=== PATIENT | female | born 1995 | race Caucasian/White ===

== ENCOUNTER 2022-04-17 18:41 | Emergency (ER) | payer MEDICAID, SELFPAY ==
[2022-04-17 18:44] VITALS: BP 163/102; PULSE 86; RESP 17; TEMP 37; O2SAT 99; BMI 24.7
--- NOTE | 2022-04-17 19:02 | HMH.EDGENADL ---
Discharge Plan Disposition Patient Disposition: Home, Self-Care Prescriptions Prescriptions: No Action No Known Home Medications Activity Restrictions/Add. Instructions Additional Instructions/Restrictions: Please follow-up with your primary care doctor in 1 to 2 weeks as instructed. Return to the emergency department with evidence of organ damage as we discussed. Clinical Impressions Clinical Impression: Asymptomatic hypertension Discharge ED Provider: Eddie Bill General Adult HPI General Chief complaint: Anxiety Stated complaint: High Pressure CARRIZALES Time Seen by Provider: 04/17/22 19:02 Mode of Arrival: Ambulatory Source of Information: Patient Limitations: No Limitations Description of Symptoms (Recalled from ER Triage Doc. by RN): 26 F presents with a few days of feeling dizzy which caused her to monitor her blood pressure. She has been taking her blood pessure several times a day; however, they are typically ranging 140-150 systolic with >80 diastolic. No medical history. Patient denies chest pain or SOA. History of Present Illness HPI narrative: Patient is a 26-year-old female here today with hypertension. She states that she was just checking her blood pressure with someone else recently to see what it was and it was incidentally high since that time she is having occasional and intermittent dizziness and has been continually checking her blood pressure and her blood pressure has been ranging in the 140s 150s systolic with 80s to 110s diastolic. She denies any changes in mental status any significant headache chest pain shortness of breath changes in urine. She has no current symptoms at the moment. She has not had nausea vomiting or diarrhea. She does not have a primary care physician. She exercises daily and eats healthy she claims. 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 Related Data Home Medications Medication Instructions Recorded Confirmed No Known Home Medications 04/17/22 04/17/22 Allergies Allergy/AdvReac Type Severity Reaction Status Date / Time No Known Allergies Allergy Verified 04/17/22 19:12 [facility] Disclaimer: The information contained in this section may have been updated after the patient was seen, as this information can be updated by other users. Medical History (Updated 04/17/22 @ 19:14 by Eddie Bill MD) No significant past medical history Social History Smoking Status: Never smoker alcohol intake: never current occupational status: other Travel in the last 8 weeks: None ROS Obtained: Yes All systems reviewed & no additional complaints except as documented Physical Exam General General appearance: alert and in no apparent distress Respiratory Respiratory exam: Present normal lung sounds bilaterally; Absent respiratory distress Cardiovascular Cardiovascular exam: Present regular rate; Absent tachycardia Abdominal Exam Abdominal exam: Present soft; Absent distention or tenderness Neurological Exam Neurological exam: Present alert, oriented X3, CN II-XII intact and other (Oejshg-pj-[id number] dlyy-za-avpw rapid alternating movements in upper extremities Romberg and gait including heel-to-toe walking all normal.); Absent motor sensory deficit Medical Decision Making Gabriel Inquiry Pt receiving controlled substance: No Vital Signs: 04/17/22 18:44 04/17/22 19:35 Temperature 98.6 F 98.6 F Temperature Source Oral Oral Pulse Rate 79 Pulse Rate [Left] 86 Respiratory Rate 17 17 Blood Pressure 154/96 H Blood Pressure [Right Arm] 163/102 H Blood Pressure Mean [Right Arm] 122 Blood Pressure Source [Right Arm] Automatic Cuff Blood Pressure Position [Right Arm] Sitting 02 Sat by Pulse Oximetry 99 Oxygen Delivery Method Room Air Room Air Medical Decision Narrative: Patient is a 26-year-old female presenting with asymptomatic hypertension normal neurologic exam. She has had payton
[2022-04-17 19:35] VITALS: BP 147/93; PULSE 79; RESP 17; TEMP 37; O2SAT 99
--- NOTE | 2022-04-17 19:37 | ECG_ITS ---
APPROVED REPORT Exam: Resting ECG HR:75 bpm ECG Measurements Heart Rate 75 AXES AK 144 P 36 QRSd 84 QRS 96 QT 372 T 47 QTc 401 Conclusion SINUS RHYTHM BORDERLINE RIGHT AXIS DEVIATION [QRS AXIS > 90] BORDERLINE ECG UNCONFIRMED REPORT Electronically signed by : Jason Weber MD 04/17/2022 20:59:59
== END 2022-04-17 19:44 | disposition home or self-care (01) ==
PROVIDERS: Emergency Provider Student in an Organized Health Care Education/Training Program
DX: I10 Essential (primary) hypertension (principal)
CPT/HCPCS: 93005; 99283

== ENCOUNTER 2023-03-30 13:46 | Emergency (ER) | payer MEDICAID, SELFPAY ==
[2023-03-30 14:30] VITALS: BP 125/80; PULSE 128; RESP 21; TEMP 37; O2SAT 98; BMI 29.2
[2023-03-30 14:35] LABS: Coronavirus 19, PCR Not Detected (NotDetected); Influenza A, PCR Not Detected (NotDetected)
--- NOTE | 2023-03-30 14:40 | ED_ITS ---
Discharge Plan Disposition Patient Disposition: Home, Self-Care Condition: Good Prescriptions Prescriptions: No Action lisinopril 10 mg Tablet 10 mg PO DAILY hydroxyzine HCl 25 mg tablet 25 mg PO DAILY Patient Comments: TAKE 1/2 TO 1 (ONE-HALF TO ONE) TABLET BY MOUTH TWICE DAILY NEEDED FOR ANXIETY AND FOR SLEEP Vraylar 1.5 mg capsule 1.5 mg PO DAILY Patient Comments: TAKE 1 CAPSULE BY MOUTH ONCE DAILY DIRECTED Referrals Follow up/Referrals: Octavio Guaman MD [Primary Care Provider] - See instructions Activity Restrictions/Add. Instructions Additional Instructions/Restrictions: *Monitor Temp, Over the counter Motrin or Tylenol as directed/as needed Tylenol every 4 hours and Motrin every 6 hours (as long as your family doctor has told you that you can take it) for fever or pain. and straight to ER if unable to lower temp less than 101.0 after medication given *Warm salt water gargles may help to soothe the throat *Throat Lozenges? *Warm fluids like tea with honey may help to soothe the throat? *Sleep elevated *Humidifier/Vaporizer Your throat swab was sent for culture. Those results are typically sent to your primary care. Be sure to follow up in 2-3 days with your family doctor/primary care physician if no improvement so they can review those result and treat if necessary. If you don?t have a primary care doctor, I recommend you get one but in the mean time, you will have to return to a walk in clinic Follow up IMMEDIATELY for new or worsening symptoms or no Noticeable improvement over the next 48-72 hours. 911 for difficulty breathing or swallowing You were tested for today for Upper Respiratory Panel with COVID19 your test result should be back in the next 24hours, you may check your results on the [facility] if your COVID is positive you must Quarantine for 5 days Clinical Impressions Clinical Impression: Viral syndrome Stand Alone Forms Stand Alone Forms: Work/School Release Instructions Patient Instructions: DI for Viral Syndrome Discharge ED Provider: Savita Reed [facility] [place] General Stated complaint: fever, body aches, vomiting Mode of Arrival: Ambulatory Source of Information: Patient Limitations: No Limitations Time Seen by Provider: 03/30/23 14:40 Description of Symptoms (Recalled from Triage Doc. by RN): PATIENT C/O FEVER, CHILLS AND VOMITING. EXPOSED TO FLU, COVID AND STREP HEENT Symptoms (Recalled from RN notes): No Resp Symptoms (Recalled from RN notes): No Skin Symptoms (Recalled from RN notes): No MS Symptoms (Recalled from RN notes): No Functional Status (Recalled from RN notes): WNL History of Present Illness Provider Complaint: Patient states that son has had flu, strep and COVID over the last week and last night she started with body aches, chills, headache, fever and vomiting States that today she wasnt feeling any better so she came in to get checked Related Data Home Medications Medication Instructions Recorded Confirmed cariprazine 1.5 mg capsule 1.5 mg PO DAILY 03/30/23 03/30/23 (Vraylar) hydroxyzine HCl 25 mg tablet 25 mg PO DAILY 03/30/23 03/30/23 lisinopril 10 mg tablet 10 mg PO DAILY 03/30/23 03/30/23 Allergies Allergy/AdvReac Type Severity Reaction Status Date / Time No Known Allergies Allergy Verified 04/17/22 19:12 Worker's Comp Is this a Worker's Comp case?: No [facility] Disclaimer: The information contained in this section may have been updated after the patient was seen, as this information can be updated by other users. Medical History (Updated 03/30/23 @ 14:46 by Savita Reed APRN) No significant past medical history Social History (Updated 04/17/22 @ 19:40 by Eddie Bill MD) Smoking Status: Never smoker alcohol intake: never current occupational status: other Travel in the last 8 weeks: None ROS Obtained: Yes All systems reviewed & no additional complaints except as documented and Yes Systems reviewed as appropriate & no additional complaints except as documented Constitutional Constitutional: Reports system reviewed and no additional complaints, except as documented, Reports as per HPI, Reports body ache, Reports chills, Reports fever(s) and Reports headache(s) ENT Ears, Nose, Mouth, and Throat: Reports system reviewed and no additional complaints, except as documented, Reports as per HPI, Reports headache(s), Reports nasal congestion and Reports sore throat Cardiovascular Cardiovascular: Reports system reviewed and no additional complaints, except as documented and Reports as per HPI Respiratory Respiratory: Reports system reviewed and no additional complaints, except as documented and Reports as per HPI Gastrointestinal Gastrointestingal: Reports system reviewed and no additional complaints, except as documented, as per HPI, nausea and vomiting Genitourinary Female Genitourinary: Reports system reviewed and no additional complaints, except as documented and Reports as per HPI Neurologic Neurologic: Reports headache(s) Physical Exam General General appearance: alert and in no apparent distress ENT ENT exam: Present mucous membranes moist Expanded ENT Exam Nose exam: Absent sinus tenderness Throat exam: Present normal inspection Respiratory Respiratory exam: Present normal lung sounds bilaterally; Absent respiratory distress or wheezes Cardiovascular Cardiovascular exam: Present regular rate, normal rhythm and tachycardia Abdominal Exam Abdominal exam: Present soft and normal bowel sounds; Absent distention or tenderness Neurological Exam Neurological exam: Present alert, oriented X3 and normal gait Medical Decision Making Gabriel Inquiry Pt receiving controlled substance: No Gabriel was queried for this patient: No Vital Signs: 03/30/23 14:30 Temperature 98.6 F Temperature Source Oral Pulse Rate [Left Brachial] 128 H Respiratory Rate 21 Blood Pressure [Left Arm] 125/80 Blood Pressure Mean [Left Arm] 95 Blood Pressure Source [Left Arm] Automatic Cuff Blood Pressure Position [Left Arm] Sitting 02 Sat by Pulse Oximetry 98 Oxygen Delivery Method Room Air Lab Data Lab results reviewed: Yes I reviewed the patient's lab results. Orders (Tests/Meds): ORDERS Category Date Time Status Rapid PCR Covid and Flu A/B Stat Lab 03/30/23 14:11 Received
[2023-03-30 14:43] LABS: UTC Strep Screen (Rapid) Negative (Negative)
[2023-03-30 14:49] VITALS: BP 125/80; PULSE 128; RESP 21; TEMP 37; O2SAT 98
[2023-03-30 15:40] LABS: Influenza B, PCR Detected (NotDetected)
== END 2023-03-30 14:56 | disposition home or self-care (01) ==
PROVIDERS: Emergency Provider Nurse Practitioner; PCP Family Medicine
DX: J10.1 Influenza due to other identified influenza virus with other respiratory manifestations (principal); R50.9 Fever, unspecified; R51.9 Headache, unspecified; R11.2 Nausea with vomiting, unspecified
CPT/HCPCS: 87636; 87880; 99203; 99212; G0463